=== PATIENT | male | born 1935 | race Asian ===

== ENCOUNTER → 2024-12-05 11:01 | Outpatient (REF) | payer MEDICARE, BC, SELFPAY | LOC: RCS 11:01 | PROVIDERS: ATTENDING PHYSICIAN Internal Medicine Cardiovascular Disease; FAMILY PHYSICIAN Family Medicine | DX: R06.09 Other forms of dyspnea (principal); I34.0 Nonrheumatic mitral (valve) insufficiency | CPT/HCPCS: 93306 ==

== ENCOUNTER → 2024-12-11 06:53 | Outpatient (REF) | payer MEDICARE, BC, SELFPAY | LOC: RCS 06:53 | PROVIDERS: ATTENDING PHYSICIAN Internal Medicine Cardiovascular Disease; FAMILY PHYSICIAN Family Medicine | DX: R94.31 Abnormal electrocardiogram [ECG] [EKG] (principal); R06.09 Other forms of dyspnea | CPT/HCPCS: 78452; 93017; A9500 ==

== ENCOUNTER 2024-12-16 10:01 | Day surgery (SDC) | payer MEDICARE, BC, SELFPAY ==
[2024-12-16] VITALS (18 sets, daily range): BP systolic 131–189; BP diastolic 71–107; BMI 18.4
[2024-12-16 10:40] LABS: Hematocrit 42.6 % (39.0-52.0); Hemoglobin 14.1 g/dL (13.0-18.0); Mean Corp Hgb Conc. 33.1 g/dL (33.0-37.0); Mean Corpuscular Hgb 32.9 pg (27.0-31.0); Mean Corpuscular Volume 99.3 fL (80.0-94.0); Mean Platelet Volume 10.6 fL (7.4-10.4); Platelet Count 187 10^3/uL (130-400); Red Blood Cell Count 4.29 10^6/uL (4.70-6.10); White Blood Cell Count 5.5 10^3/uL (4.8-10.8)
[2024-12-16 10:57] LABS: ALT (SGPT) 21 U/L (0-50); AST (SGOT) 29 U/L (17-59); Albumin 5.1 g/dl (3.5-5.0); Alkaline Phosphatase 66 U/L (38-126); Blood Urea Nitrogen 20 mg/dl (9-20); Calcium 9.5 mg/dl (8.4-10.2); Carbon Dioxide 26 mmol/L (22-30); Chloride 107 mmol/L (98-107); Estimated Creatinine Clearance 33 ml/min; Glucose 101 mg/dl (70-99); Potassium 4.4 mmol/L (3.5-5.1); Sodium 143 mmol/L (135-145); Total Bilirubin 1.8 mg/dl (0.2-1.3); Total Protein 8.3 g/dl (6.3-8.2); eGFR > 60.00
[2024-12-16] MEDS: NSS 151 ML IV (11:00)
[2024-12-16] MEDS: LOW STRENGTH ASPIRIN 324 MG PO (11:41)
[2024-12-16] MEDS: PLAVIX 600 MG PO (17:19)
[2024-12-16] MEDS: TOPROL XL 25 MG PO (17:20)
--- NOTE | 2024-12-16 18:07 | ITS.CL.CATH ---
[facility] Plant Operator - Catheterization
Cardiac Catheterization
Procedure Report:
LEFT HEART CATHETERIZATION
Date of Procedure: December 16, 2024
Referring: Edilma Sanchez MD
PROCEDURES:
1. Left heart catheterization, coronary angiogram.
2. Moderate sedation.
INDICATION: Abnormal ECG and stress test showing transient ischemic dilatation and LAD perfusion defects on 12/11/24. Normal Echocardiogram 12/10/24.
ACCESS: Right radial artery, 6Fr. sheath, under US guidance.
HEMODYNAMICS : (mmHg)
AO (s/d) : 134/87
LVEDP : 13
No significant gradient across the aortic valve to suggest aortic stenosis.
CORONARY FINDINGS
Dominance: Right
Left Main Trunk (LMT): Large caliber vessel that gives rise to the LAD and LCx branches that is free of angiographic disease.
Left Anterior Descending Artery (LAD): Large caliber vessel that gives off two major diagonal branches as it courses along the anterior inter-ventricular groove before reaching but not wrapping the apex. The proximal to mid-LAD has a long area of
80% stenosis. The first diagonal is a small caliber vessel with severe diffuse disease. The second diagonal has ostial 60% stenosis.
Left Circumflex Artery (LCx): Large caliber co-dominant vessel that gives off a large arborizing major obtuse marginal (OM), a small caliber left posterolateral and a small caliber left posterior descending artery . The OM1 has a superior limb with
proximal 70% stenosis, and an inferior limb that bifurcates and has a 90% stenosis at the bifurcation.
Right Coronary Artery (RCA): Large caliber co-dominant vessel that gives rise to large posterior descending artery (RPDA) that reaches the apex and postero-lateral ventricular (RPLV) branches distally. The RCA has a mid-vessel 90% stenosis.
SEDATION: 37 minutes of procedural sedation was utilized. IV Midazolam and IV Fentanyl were administered. An independent director of medical review was present to assist with and help manage the patient's level of consciousness and physiologic status.
RADIATION SUMMARY: Fluoro Time (min): 4.2, Dose (mGy): 151.8, DAP (Gy.cm2) : 9.98
Closure Device: There were no immediate intra-procedural complications. The sheath was pulled in the laborer marine terminal and a vascular-band applied to the right wrist for radial artery hemostasis using the patent hemostasis technique.
CONCLUSIONS
1. Severe multivessel CAD.
2. Normal LVEDP
RECOMMENDATIONS
1. Wean radial band per protocol. Monitor right hand perfusion and for bleeding from the radial site following removal of the vascular-band following trans-radial access.
2. Continue aggressive medical therapy and risk factor modification for secondary CAD prevention.
3. Hydrate with normal saline to mitigate the risk of contrast-induced acute kidney injury.
4. After extensive discussion plan for staged PCI to LAD and RCA. Plavix loaded today with plan for PCI as otupatient on 12/22/24.
5. Follow-up with Dr. Edilma Sanchez
Copy to: Dr. Edilma Sanchez
Sheila Barfield MD
== END 2024-12-16 18:10 | disposition home or self-care (01) ==
LOC: CATH 10:01
PROVIDERS: ATTENDING PHYSICIAN Internal Medicine Interventional Cardiology; FAMILY PHYSICIAN Family Medicine; OTHER PHYSICIAN Internal Medicine Cardiovascular Disease
DX: I25.10 Atherosclerotic heart disease of native coronary artery without angina pectoris (principal); I34.0 Nonrheumatic mitral (valve) insufficiency; I10 Essential (primary) hypertension; E78.1 Pure hyperglyceridemia
CPT/HCPCS: 99152; 99153; 80053; 85027; 93458; C1894; Q9967

== ENCOUNTER 2024-12-22 07:29 | Day surgery (SDC) | payer MEDICARE, BC, SELFPAY ==
[2024-12-22] VITALS (14 sets, daily range): BP systolic 108–159; BP diastolic 49–71; BMI 18.6
[2024-12-22] MEDS: NSS 152 ML IV (08:15)
[2024-12-22] MEDS: LOW STRENGTH ASPIRIN 81 MG PO (08:45)
[2024-12-22] MEDS: PLAVIX 600 MG PO (08:46)
[2024-12-22 09:29] LABS: ACT-LR - POC 339 Seconds (116-155)
[2024-12-22 09:49] LABS: ACT-LR - POC 281 Seconds (116-155)
[2024-12-22 09:59] LABS: ACT-LR - POC 311 Seconds (116-155)
--- NOTE | 2024-12-22 10:41 | PTCARENOTE ---
Addendum entered by Jairon Elizabeth RN 12/22/24 11:02:
Patient received from canvas shop laborer. AO x 3, NSR. Right radial band intact, POX 99%, BP 123/64. Voided in urinal with assistance. Call swartz in reach
Original Note:
Patient reciied from canvas shop laborer. AO x 3, NSR. Right radial band intact, POX 99%, BP 123/64. Voided in urinal with assistance. Call swartz in reach
--- NOTE | 2024-12-22 11:22 | CM ---
Chart reviewed. Patient is independent of ADLS, lives with his in a 2 STH, 1st level set up, 0 DME. Plan is for the patient to return home. CM to follow
--- NOTE | 2024-12-22 14:10 | ITS.CL.CATH ---
Diamond Grader - Catheterization
Cardiac Catheterization
Procedure Report:
CORONARY INTERVENTION
Date of Procedure: December 22, 2024
Referring: Edilma Sanchez MD
PROCEDURES:
1. Left heart catheterization, selective left coronary angiogram.
2. Moderate sedation.
3. Successful percutaneous coronary artery intervention of 2 serial along areas of up to 80% stenosis in the proximal to mid LAD with 2 overlapping 2.5 x 18 and 2.5 x 22 mm Medtronic Morton drug-eluting stent, postdilated with a 2.5 x 15 mm NC
balloon at 18 michelle distally and a 3.0 x 12 mm NC balloon at 18 michelle proximally within excellent angiographic and IVUS based result.
4. Intravascular ultrasound (IVUS)
INDICATION: Recent diagnostic heart catheterization for abnormal ECG and stress test showing transient ischemic dilatation and LAD perfusion defects on 12/11/24. Normal Echocardiogram 12/10/24. He now presents for planned staged PCI of LAD. He was
loaded with Plavix 600 mg last week however he has not been taking Plavix daily until last evening. He has reported taking aspirin daily along with the statin. He has not initiated his beta-karena yet. Extensive discussion was had with patient
and his family especially his daughter who is a professor of voice emphasizing the importance of medication compliance and daily need for dual antiplatelet therapy with aspirin and Plavix post PCI. After extensive discussion of the risk and benefits and
importance of medication compliance, they agreed to move forward. He was reloaded with Plavix 600 mg this morning given he had not been taking it regularly over the last week.
ACCESS: Right radial artery, 6Fr. sheath, under US guidance.
HEMODYNAMICS : (mmHg)
AO (s/d) : 144/67
LVEDP : 26
No significant gradient across the aortic valve to suggest aortic stenosis.
CORONARY FINDINGS
Dominance: Right
Left Main Trunk (LMT): Large caliber vessel that gives rise to the LAD and LCx branches that is free of angiographic disease.
Left Anterior Descending Artery (LAD): Large caliber vessel that gives off two major diagonal branches as it courses along the anterior inter-ventricular groove before reaching but not wrapping the apex. The proximal to mid-LAD has a long area of
80% stenosis. The first diagonal is a small caliber vessel with severe diffuse disease. The second diagonal has ostial 60% stenosis.
Left Circumflex Artery (LCx): Large caliber co-dominant vessel that gives off 2 major obtuse marginal branches, a small caliber left posterolateral and a small caliber left posterior descending artery OM1 is a small to medium caliber vessel with a
OM 2 is a large arborizing major obtuse marginal (OM), which has a superior limb with proximal 70% stenosis, and an inferior limb that bifurcates and has a 90% stenosis at the bifurcation.
Right Coronary Artery (RCA): The RCA was not selectively shot on this study. On recent diagnostic heart catheterization, the RCA is a large caliber co-dominant vessel that gives rise to large posterior descending artery (RPDA) that reaches the
apex and postero-lateral ventricular (RPLV) branches distally. The RCA has a mid-vessel 90% stenosis.
CORONARY INTERVENTION: The left coronary artery was selectively engaged using a 6 Polish EBU 3.5 guide catheter. Additional heparin was given to maintain therapeutic ACT throughout the case. A 190 cm 0.014 run-through wire was successfully
advanced into D2. A second 190 cm 0.014 BMW coronary wire was successfully advanced into the distal LAD after carefully navigating through the proximal and mid LAD stenosis. The lesions in the proximal to mid LAD were predilated using a 2.5 x 20
mm semicompliant balloon with good expansion. The mid LAD lesion was then stented using a 2. 5 x 22 mm Medtronic Morton drug-eluting stent which was overlapped with a 2.5 x 18 mm Medtronic Mark drug-eluting stent in the proximal portion jailing D2.
The jailed run-through wire was retracted from the D2 and redirected back into D2 across the stent struts. At this point we performed intravascular ultrasound with the [employer] eye IVUS catheter and based on IVUS imaging we postdilated the
stents with a 2.5 x 15 mm NC Euphora balloon at 18 michelle distally, 20 michelle in the midportion. Proximal LAD stent was postdilated using a 3.0 x 12 mm NC Euphora balloon at 18 michelle with an excellent angiographic and IVUS based result without evidence of
proximal or distal stent edge dissections. The stent otherwise was well opposed and well-expanded. The patient tolerated the procedure well with no acute complications.
SEDATION: 37 minutes of procedural sedation was utilized. IV Midazolam and IV Fentanyl were administered. An independent medical office coordinator was present to assist with and help manage the patient's level of consciousness and physiologic status.
RADIATION SUMMARY: Fluoro Time (min): 11, Dose (mGy): 206.95, DAP (Gy.cm2) : 10.2
Closure Device: There were no immediate intra-procedural complications. The sheath was pulled in the ballistics laboratory gunsmith and a vascular-band applied to the right wrist for radial artery hemostasis using the patent hemostasis technique.
CONCLUSIONS
1. Successful IVUS guided percutaneous coronary artery intervention of 2 serial along areas of up to 80% stenosis in the proximal to mid LAD with 2 overlapping 2.5 x 18 and 2.5 x 22 mm Medtronic Morton drug-eluting stent, postdilated with a 2.5 x 15
mm NC balloon at 18 michelle distally and a 3.0 x 12 mm NC balloon at 18 michelle proximally within excellent angiographic and IVUS based result.
2. Elevated LVEDP at 26 mmHg.
RECOMMENDATIONS
1. Wean radial band per protocol. Monitor right hand perfusion and for bleeding from the radial site following removal of the vascular-band following trans-radial access.
2. Continue aggressive medical therapy and risk factor modification for secondary CAD prevention.
3. Continue ASA 81 mg daily for life.
4. Continue plavix 75mg daily for at least 12 months of uninterrupted dual anti-platelet therapy given drug-eluting stent (CABRERA) implantation to mitigate the risk of stent thrombosis. This is not to be stopped for any reason without the guidance of
a cook supervisor.
5. Hydrate with normal saline to mitigate the risk of contrast-induced acute kidney injury.
6. Referral for outpatient cardiac rehab.
7. Follow-up with Dr. Edilma Sanchez.
8. Consideration for staged PCI to the mid +/- ostial RCA in the near future depending on how he recovers from this and declares medication compliance.
Copy to: Dr. Edilma Sanchez
Sheila Barfield MD
--- NOTE | 2024-12-22 15:10 | PTCARENOTE ---
TR band removed, dry sterile dressing placed. Assisted to the bathroom to void and assisted to chair, call swartz in reach
[2024-12-22] MEDS: LIPITOR 40 MG PO (17:52)
--- NOTE | 2024-12-22 19:15 | PTCARENOTE ---
Received pt at change of shift OOB in the chair, at bedside. NSR on the monitor, HR in the 60's. Denies any chest pain or SOB. Right radial site C,D,I. No bleeding or hematoma noted at this time. Positive pulses. Pt educated on activity
restrictions. Call swartz within reach.
[2024-12-23 04:03] VITALS: BP 139/73
[2024-12-23 04:37] LABS: Hematocrit 35.9 % (39.0-52.0); Hemoglobin 12.3 g/dL (13.0-18.0); Mean Corp Hgb Conc. 34.3 g/dL (33.0-37.0); Mean Corpuscular Hgb 33.6 pg (27.0-31.0); Mean Corpuscular Volume 98.1 fL (80.0-94.0); Mean Platelet Volume 10.6 fL (7.4-10.4); Platelet Count 168 10^3/uL (130-400); Red Blood Cell Count 3.66 10^6/uL (4.70-6.10); Red Cell Dist. Width 11.6 % (11.5-14.5); White Blood Cell Count 7.1 10^3/uL (4.8-10.8)
--- NOTE | 2024-12-23 04:43 | PTCARENOTE ---
Right radial site C.D.I no bleeding or hematoma noted. AM labs and EKG obtained. Pt voices no complaints at this time.
[2024-12-23 05:10] LABS: Blood Urea Nitrogen 17 mg/dl (9-20); Calcium 8.7 mg/dl (8.4-10.2); Carbon Dioxide 24 mmol/L (22-30); Chloride 111 mmol/L (98-107); Estimated Creatinine Clearance 37 ml/min; Glucose 92 mg/dl (70-99); HDL Cholesterol 47 mg/dl; LDL Cholesterol, Calculated 41 mg/dl; Sodium 141 mmol/L (135-145); Total Cholesterol 106 mg/dl (50-199); Triglyceride 93 mg/dl (10-149); Very Low Density Lipoprotein 18 mg/dl (0-30); eGFR > 60.00
[2024-12-23 07:41] VITALS: BP 146/69
--- NOTE | 2024-12-23 08:14 | W.PN.CARDCBS ---
Addendum entered and electronically signed by Morgan Lazo MD 12/23/24 13:51:
I saw and examined the patient.
The Lacing Cutter's note was reviewed and I agree with the note.
Comment: Briefly, 89-year-old man past medical history of newly identified multivessel CAD following an abnormal stress test who underwent LAD PCI on 12/22/2024
Patient was resting comfortably eating breakfast out of bed to chair in the IVU this morning at the time of my evaluation
Asymptomatic
Maintaining sinus rhythm on telemetry
No evidence of decompensated heart failure based on physical exam
Hematoma of the right forearm however right upper extremity is neurovascularly intact
Plan for discharge on aspirin/Plavix, high intensity statin and beta-karena
Eventual cardiac rehab
Discussed with and daughter at bedside
Original Note:
Today's Communication / Plan
-
cardiac rehab
home today
Impression / Plan
-
PCP: John
CDY: Edilma Sanchez MD
89 y/o, recent diagnostic LHC last week for abnormal ECG and stress test showing transient ischemic dilatation and LAD perfusion defects on 12/11/24. Presented for staged LAD PCI on 12/22, and colón been loaded with plavix last week but was not taking
daily as instructed and was reloaded with 600mg after extensive discussion with patient/family re: medication compliance and need for DAPT post PCI.
LHC- 80% prox/mid LAD- s/p IVUS guided PCI w/2 overlapping CABRERA
IMPRESSION:
CAD
s/p LAD PCI w/2 overlapping CABRERA
Residual 90% ostial RCA, medical management
HTN
Hypertriglyceridemia
ULI
Prior SDH
Lumbar disc disease
Prostate Ca
Medicine non compliance
PLAN:
Tele- NSR, no VT/arrhythmia
Radial cath site stable
Importance of DAPT w/asa, plavix discussed with patient/- they expressed understanding and will be given drug info at discharge
Residual RCA disease- managed medically and consider staged PCI depending on recovery/medicine compliance
Creat stable post dye load
will continue atorvastatin, metoprolol xl
cardiac rehab consult today
followup with Dr. France as scheduled
home today
Progress Note - Public Information Director
Subjective
Date of Service: December 23, 2024
OOB ambulating
denies cp/palps/dyspnea
radial cath site without pain
Objective
Labs:
12/23/24 04:08
12/23/24 04:08
Labs
Hgb 12.3 g/dL (13.0-18.0) L 12/23/24 04:08
Hct 35.9 % (39.0-52.0) L 12/23/24 04:08
Plt Count 168 10^3/uL (130-400) 12/23/24 04:08
Sodium 141 mmol/L (135-145) 12/23/24 04:08
Potassium 4.0 mmol/L (3.5-5.1) 12/23/24 04:08
BUN 17 mg/dl (9-20) 12/23/24 04:08
Creatinine 1.0 mg/dL (0.7-1.3) 12/23/24 04:08
Glucose 92 mg/dl (70-99) 12/23/24 04:08
Vital Signs and I&O:
Vital Signs
Temp Pulse Resp BP Pulse Ox
98.1 F 68 16 139/73 97
12/23/24 04:03 12/23/24 06:00 12/23/24 04:03 12/23/24 04:03 12/23/24 04:03
Vital Signs
Temp Pulse Resp BP Pulse Ox
98.1 F 68 16 139/73 97
12/23/24 04:03 12/23/24 06:00 12/23/24 04:03 12/23/24 04:03 12/23/24 04:03
Intake & Output
12/21/24 12/22/24 12/23/24 12/24/24
06:59 06:59 06:59 06:59
Intake Total 1127 / 1127
Output Total 350 / 350
Balance 777 / 777
Physical Exam
Physical Exam
AAOx3, MAEE 5/5
RRR S1 S2 no murmurs
CTA bilat, non labored
soft abd, + bs
radial site soft, no ht/bleeding, mild ecchymosis noted from prior cath last week
bilat extremities w/palpable distal pulses, no edema
[2024-12-23] MEDS: PLAVIX 75 MG PO (08:16)
[2024-12-23] MEDS: TOPROL XL 25 MG PO (08:16)
[2024-12-23] MEDS: ASPIR LOW (ENTERIC COATED) 81 MG PO (08:16)
--- NOTE | 2024-12-23 10:24 | W.DS.TRANS ---
DC Summary - Warehouse Receiving Clerk
-
Discharge Instructions:
Discharge Diagnosis/Procedures Angioplasty and stent x2 to Left Anterior
Descending artery
Diet Low Cholesterol
Driving Restrictions No driving for 24 hours
Other Services Cardiac Rehab
Instructions:
Stand-Alone Forms: DC Instructions- Cath/EP Lab
Changes to Home Medications: No
Discharge Medications:
DC Medications w/original date entered in [facility]
aspirin 81 mg tablet 81 mg PO DAILY 12/16/24
atorvastatin 40 mg tablet (Lipitor) 40 mg PO QPM 12/16/24
bicalutamide 50 mg tablet 50 mg PO DAILY 12/16/24
calcium 600 mg-D3 800 unit-mag 40 it-cxcl-xqcz-marcia-boron chew tablet (Caltrate 600-D Plus Minerals) 1 tab PO WE 12/16/24
cholecalciferol (vitamin D3) 25 mcg (1,000 unit) capsule 25 mcg PO DAILY 12/16/24
clopidogrel 75 mg tablet 75 mg PO DAILY #90 tabs 12/16/24
vhvoexvswkb-suwuzswvu-H-Mn-boron 750 mg-600 mg-30 mg-1mg-1.5mg tablet 1 tab PO DAILY 12/16/24
metoprolol succinate 25 mg tablet,extended release 24 hr 25 mg PO DAILY #90 tabs 12/16/24
saw palm 160 mg-vit E 100 unit-selen 100 zhs-obst-wzkgjh-pygeum tablet (Prostate Health) 1 tab PO DAILY 12/16/24
turmeric root extract 500 mg tablet 1,000 mg PO DAILY 12/16/24
vitamin B complex 1 tab PO DAILY 12/16/24
Home Medication Changes
Pending Results: No
[2024-12-23 11:22] VITALS: BP 143/63
[2024-12-23 11:24] VITALS: BP 143/63
== END 2024-12-23 11:55 | disposition home or self-care (01) ==
LOC: CATH 07:29
PROVIDERS: Nurse Practitioner; ATTENDING PHYSICIAN Internal Medicine Interventional Cardiology; FAMILY PHYSICIAN Family Medicine; OTHER PHYSICIAN Internal Medicine Cardiovascular Disease
DX: I25.10 Atherosclerotic heart disease of native coronary artery without angina pectoris (principal); Z79.02 Long term (current) use of antithrombotics/antiplatelets; I10 Essential (primary) hypertension; E78.1 Pure hyperglyceridemia; G47.33 Obstructive sleep apnea (adult) (pediatric); M51.9 Unspecified thoracic, thoracolumbar and lumbosacral intervertebral disc disorder; Z91.148 Patient's other noncompliance with medication regimen for other reason; Z79.82 Long term (current) use of aspirin; Z79.899 Other long term (current) drug therapy
CPT/HCPCS: 99152; 99153; 92978; 80048; 80061; 85027; 85347; 93005; 93458; C1725; C1753; C1769; C1874; C1894; C9600; Q9967

== ENCOUNTER 2025-02-11 09:39 | Outpatient (RCR) | payer MEDICARE, BC, SELFPAY | END 2025-02-11 23:59 | disposition home or self-care (01) | LOC: CRHB 09:39 | PROVIDERS: ATTENDING PHYSICIAN Internal Medicine Cardiovascular Disease | DX: I25.10 Atherosclerotic heart disease of native coronary artery without angina pectoris (principal); Z95.5 Presence of coronary angioplasty implant and graft | CPT/HCPCS: G0422; G0423 ==

== ENCOUNTER 2025-03-11 10:25 | Outpatient (RCR) | payer MEDICARE, BC, SELFPAY | END 2025-03-11 23:59 | disposition home or self-care (01) | LOC: CRHB 10:25 | PROVIDERS: ATTENDING PHYSICIAN Internal Medicine Cardiovascular Disease | DX: I25.10 Atherosclerotic heart disease of native coronary artery without angina pectoris (principal); Z95.5 Presence of coronary angioplasty implant and graft | CPT/HCPCS: G0422; G0423 ==

== ENCOUNTER 2025-03-12 09:17 | Day surgery (SDC) | payer MEDICARE, BC, SELFPAY ==
[2025-03-12] VITALS (14 sets, daily range): BP systolic 101–152; BP diastolic 48–79; BMI 18.7; BMI 17.9
--- NOTE | 2025-03-12 10:02 | ITS.CL.CATH ---
[facility] Examiner - Catheterization
Cardiac Catheterization
Procedure Report:
LEFT HEART CATHETERIZATION AND CORONARY INTERVENTION
Date of Procedure: January 10, 2025
Referring: Edilma Sanchez MD
PROCEDURES:
1. Left heart catheterization, coronary angiogram.
2. Moderate sedation.
3. Successful percutaneous coronary artery intervention of a 90% mid RCA stenosis with one 2.5 x 15 mm Medtronic Mark drug-eluting stent, postdilated using a 2.5 x 12 mm NC balloon at 18 michelle with an excellent angiographic result.
4. Functional physiologic testing with IFR of ostial RCA.
INDICATION: Staged PCI to Mid RCA
ACCESS: Left radial artery, 6Fr. sheath, under US guidance.
HEMODYNAMICS : (mmHg)
AO (s/d) : 135/65
LVEDP : 24
No significant gradient across the aortic valve to suggest aortic stenosis.
CORONARY FINDINGS
Dominance: Right
Left Main Trunk (LMT): Large caliber vessel that gives rise to the LAD and LCx branches that is free of angiographic disease.
Left Anterior Descending Artery (LAD): Large caliber vessel that gives off two major diagonal branches as it courses along the anterior inter-ventricular groove before reaching but not wrapping the apex. Recently placed proximal to mid LAD stents
are widely patent. The first diagonal is a small caliber vessel with severe diffuse disease. The second diagonal has ostial 60-70% stenosis.
Left Circumflex Artery (LCx): Large caliber co-dominant vessel that gives off a large arborizing major obtuse marginal (OM), a small caliber left posterolateral and a small caliber left posterior descending artery . The OM1 has a superior limb with
proximal 70% stenosis, and an inferior limb that bifurcates and has a 90% stenosis at the bifurcation.
Right Coronary Artery (RCA): Large caliber co-dominant vessel that gives rise to large posterior descending artery (RPDA) that reaches the apex and postero-lateral ventricular (RPLV) branches distally. The RCA has a mid-vessel 90% stenosis.
Intervention as noted below to mid RCA. Ostial RCA has 50-60% stenosis and was IFR negative at 0.93.
CORONARY INTERVENTION: The RCA was selectively engaged using a 6 [place] JR4 guide catheter. Additional heparin was given to maintain a therapeutic ACT throughout the case. He initially introduced a 190 cm 0.014 run-through wire which kept being
redirected into the RV marginal branch. Leaving this wire in place to help with the guide stabilization a second 190 cm 0.014 power turn flex wire was introduced and carefully navigated across the mid RCA stenosis into the distal RCA. The
run-through was then taken out of the body. The lesion was predilated using a 2.5 x 12 mm semicompliant balloon with full expansion. The lesion was subsequently stented using a 2.5 x 15 mm Medtronic Mark drug-eluting stent and postdilated using a
2.5 x 12 mm NC balloon at high pressures with an excellent intragraft result and FUENTES-3 flow into the distal vessel.
HEMODYNAMIC ASSESSMENT OF THE OSTIAL RCA WITH A [place] OMNI WIRE: Given significant pressure dampening upon engagement with a 6 Swedish JR4 guide without obvious obstructive CAD on angiography decision was made to proceed with IFR of ostial RCA
after mid RCA intervention. Through the same 6 Swedish JR4 guide, two hundred micrograms of intracoronary nitroglycerin was given through the guide catheter. A [place] Omni wire was advanced to the guide catheter tip and normalized in the aorta by
disengaging the guide. The Omni wire was then carefully manipulated across the stenosis in the ostial RCA with the iFR above the ischemic threshold serially measuring 0.94, 0.93. The Omni wire was then pulled back to the guide catheter where the
Pd/Pa measured 1.0 confirming no baseline drift in pressure readings. Decision was made to proceed with medical therapy of this moderate lesion.
The patient tolerated the procedure well with no acute complications. He was to be loaded with 300 mg of Plavix this morning prior to PCI.
SEDATION: 47 minutes of procedural sedation was utilized. IV Midazolam and IV Fentanyl were administered. An independent quality engineer medical device was present to assist with and help manage the patient's level of consciousness and physiologic status.
RADIATION SUMMARY: Fluoro Time (min): 18.7, Dose (mGy): 277.47, DAP (Gy.cm2) : 18.2
Closure Device: There were no immediate intra-procedural complications. The sheath was pulled in the medical laboratory specialist and a vascular-band applied to the left wrist for radial artery hemostasis using the patent hemostasis technique.
CONCLUSIONS
1. Successful percutaneous coronary artery intervention of a 90% mid RCA stenosis with one 2.5 x 15 mm Medtronic [place] drug-eluting stent, postdilated using a 2.5 x 12 mm NC balloon at 18 michelle with an excellent angiographic result.
2. Ostial RCA has 50-60% stenosis and was IFR negative at 0.93.
3. Recently placed proximal to mid LAD stents are widely patent.
4. Elevated LVEDP at 25 mmHg.
RECOMMENDATIONS
1. Wean radial band per protocol. Monitor right hand perfusion and for bleeding from the radial site following removal of the vascular-band following trans-radial access.
2. Continue aggressive medical therapy and risk factor modification for secondary CAD prevention.
3. Continue ASA 81 mg daily for life.
4. Continue plavix 75mg daily for at least 12 months of uninterrupted dual anti-platelet therapy given drug-eluting stent (CABRERA) implantation to mitigate the risk of stent thrombosis. This is not to be stopped for any reason without the guidance of
a cmm operator.
5. Hydrate with normal saline to mitigate the risk of contrast-induced acute kidney injury.
6. Referral for outpatient cardiac rehab.
7. Follow-up with Dr. Edimla Sanchez.
Copy to: Dr. Edilma Sanchez
Sheila Barfield MD
[2025-03-12] MEDS: NSS 150 ML IV (10:09)
[2025-03-12] MEDS: LOW STRENGTH ASPIRIN 81 MG PO (10:09)
[2025-03-12 12:09] LABS: ACT-LR - POC 382 Seconds (116-155)
[2025-03-12 12:38] LABS: ACT-LR - POC 334 Seconds (116-155)
[2025-03-12] MEDS: LIPITOR 40 MG PO (18:01)
[2025-03-12] MEDS: TOPROL XL 25 MG PO (18:01)
--- NOTE | 2025-03-12 19:02 | SUR.OPER ---
~1315: Received report from CCL. Patient brought to room via bed. AOx4, NSR on tele 60s, SBP 100s-110s, RA satting 100%. pt denies pain at this time. pt oriented to room and call swartz system. Admissin questions completed. L TR band in place, site
CDI at this time, patient educated on activity restrictions with L side, patient verbalized understanding. Family at bedside. All needs met at this time, call swartz within reach.
~1400: Air started to be removed from TR band per order.
~1430: Air removed from band per protocol. Site CDI at this time.
~8794-6400: Patient resting. Family at bedside. TR band removed at 1630, site dressed with sterile 2x2 and tegaderm, site CDI.
~[id number]: Patient in bed, family at bedside. VSS at this time. All needs met, call swartz within reach. Handoff report given to nightshift RN.
--- NOTE | 2025-03-12 20:36 | PTCARENOTE ---
Assumed care at 1900. Left radial site dressing clean, dry, and intact. Mild swelling noted to patient's left forearm. Tender to touch. Left forearm soft to touch. No bruising noted. Ice pack applied to area. Patient tolerated ambulating to bathroom
with standby assist. Patient denies any chest pain or shortness of breath. Sinus ray with heart rates in the 50s and 60s. Patient aware of plan of care. Call swartz within reach.
[2025-03-12] MEDS: TYLENOL 650 MG PO (21:04)
[2025-03-13 04:25] VITALS: BP 104/53
[2025-03-13 05:06] LABS: Hematocrit 36.6 % (39.0-52.0); Hemoglobin 11.9 g/dL (13.0-18.0); Mean Corp Hgb Conc. 32.5 g/dL (33.0-37.0); Mean Corpuscular Volume 98.1 fL (80.0-94.0); Platelet Count 140 10^3/uL (130-400); Red Cell Dist. Width 12.7 % (11.5-14.5)
[2025-03-13 05:30] LABS: Blood Urea Nitrogen 19 mg/dl (9-20); Calcium 8.4 mg/dl (8.4-10.2); Carbon Dioxide 23 mmol/L (22-30); Chloride 112 mmol/L (98-107); Estimated Creatinine Clearance 36 ml/min; Glucose 85 mg/dl (70-99); HDL Cholesterol 48 mg/dl; LDL Cholesterol, Calculated 27 mg/dl; Potassium 4.1 mmol/L (3.5-5.1); Sodium 139 mmol/L (135-145); Very Low Density Lipoprotein 17 mg/dl (0-30); eGFR > 60.00
--- NOTE | 2025-03-13 05:35 | PTCARENOTE ---
Left radial site dressing clean, dry, and intact. Slight improvement in swelling to left forearm noted. Patient reports improvement of soreness to the area. Patient sleeping between care overnight. Remains in sinus ray on tele. Call swartz within
reach.
[2025-03-13 06:00] VITALS: BMI 17.5
[2025-03-13 07:04] VITALS: BP 122/73
--- NOTE | 2025-03-13 07:40 | W.PN.CARDCBS ---
Addendum entered and electronically signed by Jamar Hallman MD 03/13/25 08:44:
I saw and examined the patient.
The Client Executive's note was reviewed and I agree with the note.
Comment:
GEN: No distress, awake, Ox3
HEENT: supple, anicteric, mmm
LUNGS: CTA, no wheezes/rales
CV: Reg, S1/S2, 1/6 syst LSB, no gallop
ABD: soft, BS+, NT/ND
EXT: mild L Radial ecchymosis
NEURO: Gross non-focal
SKIN: No rash
PLan:
Overall doing well status post right coronary artery PCI.
Continue medical therapy for three-vessel coronary artery disease.
Continue aspirin, Plavix, Toprol, lisinopril.
Hemoglobin 11.9, creatinine 1.0
Original Note:
Today's Communication / Plan
-
cardiac rehab
continue DAPT
med compliance reinforced
home today
Impression / Plan
-
PCP: Chriss Lopez,
CDY: Edilma Sanchez MD
89 y/o, with recent abnormal NST and subsequent LAD PCI 12/22/2024. Residual 50-60% ostial, 90% mid RCA at the time, and returns for staged RCA intervention. He has been taking aspirin/plavix without interruption.
LHC 03/12- s/p 90% mid RCA PCI w/CABRERA x1
50-60% ostial RCA, non flow limiting with iFR negative
proximal-mid LAD overlapping stents widely patent
elevated LVEDP 25mmHg
IMPRESSION:
CAD
s/p mid RCA PCI w/CABRERA x1, ostial RCA iFR negative
prior LAD PCI w/2 overlapping CABRERA- widely patent
HTN
Hypertriglyceridemia
ULI
Prior SDH
Lumbar disc disease
Prostate Ca
Medicine non compliance
PLAN:
Tele- NSR, no VT/arrhythmia
Radial cath site stable
Good compliance with DAPT, reinforced importance of uninterrupted DAPT for at least 12 months post CABRERA
Creat stable post dye load
continue metoprolol xl
excellent lipid profile- continue atorvastatin
cardiac rehab
followup at [facility] as scheduled
home today
Progress Note - Skiver Counter
Subjective
Date of Service: March 13, 2025
Denies cp/palps/dyspnea
oob ambulating
left radial cath site tender with good relief from tylenol
Objective
Labs:
03/13/25 04:26
03/13/25 04:26
Labs
Hgb 11.9 g/dL (13.0-18.0) L 03/13/25 04:26
Hct 36.6 % (39.0-52.0) L 03/13/25 04:26
Plt Count 140 10^3/uL (130-400) 03/13/25 04:26
Sodium 139 mmol/L (135-145) 03/13/25 04:26
Potassium 4.1 mmol/L (3.5-5.1) 03/13/25 04:26
BUN 19 mg/dl (9-20) 03/13/25 04:26
Creatinine 1.0 mg/dL (0.7-1.3) 03/13/25 04:26
Glucose 85 mg/dl (70-99) 03/13/25 04:26
Vital Signs and I&O:
Vital Signs
Temp Pulse Resp BP Pulse Ox
98.1 F 56 20 104/53 98
03/13/25 07:04 03/13/25 05:45 03/13/25 07:04 03/13/25 04:25 03/13/25 07:04
Vital Signs
Temp Pulse Resp BP Pulse Ox
98.1 F 56 20 104/53 98
03/13/25 07:04 03/13/25 05:45 03/13/25 07:04 03/13/25 04:25 03/13/25 07:04
Intake & Output
03/11/25 03/12/25 03/13/25 03/14/25
06:59 06:59 06:59 06:59
Intake Total 250 / 250
Output Total 225 / 225
Balance
Physical Exam
Physical Exam
AAOx3, MAEE 5
RRR S1 S2 no murmurs
CTA bilat, non labored
soft abd, + bs
left radial cath site without ht/bleeding/swelling, mild ecchymosis noted, mildly tender, good pulse
bilat extremities w/palpable distal pulses, no edema
--- NOTE | 2025-03-13 08:14 | W.DS.TRANS ---
DC Summary - [employer]
-
Discharge Instructions:
Discharge Diagnosis/Procedures Angioplasty with stent to Right Coronary artery
Diet Low Cholesterol
Driving Restrictions No driving for 24 hours
Other Services Cardiac Rehab
Instructions:
Stand-Alone Forms: DC Instructions- Cath/EP Lab
Changes to Home Medications: No
Discharge Medications:
DC Medications w/original date entered in [employer]
aspirin 81 mg tablet 81 mg PO HS 12/16/24
atorvastatin 40 mg tablet (Lipitor) 40 mg PO HS 12/16/24
bicalutamide 50 mg tablet 50 mg PO HS 12/16/24
calcium 600 mg-D3 800 unit-mag 40 ta-baud-vfsc-marcia-boron chew tablet (Caltrate 600-D Plus Minerals) 1 tab PO WE 12/16/24
cholecalciferol (vitamin D3) 25 mcg (1,000 unit) capsule 25 mcg PO HS 12/16/24
clopidogrel 75 mg tablet 75 mg PO DAILY #90 tabs 12/16/24
tkfmkvvtiyp-vhvnmhacm-R-Mn-boron 750 mg-600 mg-30 mg-1mg-1.5mg tablet 1 tab PO HS 12/16/24
metoprolol succinate 25 mg tablet,extended release 24 hr 25 mg PO DAILY #90 tabs 12/16/24
saw palm 160 mg-vit E 100 unit-selen 100 bxm-vyop-sxkijm-pygeum tablet (Prostate Health) 1 tab PO HS 12/16/24
turmeric root extract 500 mg tablet 1,000 mg PO HS 12/16/24
vitamin B complex 1 tab PO HS 12/16/24
Home Medication Changes
Pending Results: No
--- NOTE | 2025-03-13 08:42 | CM ---
Reviewed chart. Met with Mr Bishop and his daughter to review discharge plans. He states prior to admission he resides with his spouse in a condo with five steps to enter. He states prior to admission he was independent with ambulation and adls. He
states he ramos not have any DME in the home. He states he has a prescription plan and uses [facility]. The discharge plan is to return home with his spouse when medically stable.
[2025-03-13] MEDS: LOW STRENGTH ASPIRIN 81 MG PO (08:47)
[2025-03-13] MEDS: CASODEX 50 MG PO (08:47)
[2025-03-13] MEDS: PLAVIX 75 MG PO (08:47)
--- NOTE | 2025-03-13 10:24 | PTCARENOTE ---
pt sb on the monitor, hr in the 50s, vss. pt offers no complaints at this time. iv and tele removed. d/c instructions read to pt and pt verbalized understanding. pt left via wheelchair w/ staff member.
== END 2025-03-13 10:27 | disposition home or self-care (01) ==
LOC: CATH 09:17
PROVIDERS: Nurse Practitioner Adult Health; ATTENDING PHYSICIAN Internal Medicine Interventional Cardiology; FAMILY PHYSICIAN Family Medicine; OTHER PHYSICIAN Internal Medicine Cardiovascular Disease
DX: I25.10 Atherosclerotic heart disease of native coronary artery without angina pectoris (principal); Z95.5 Presence of coronary angioplasty implant and graft; I10 Essential (primary) hypertension; E78.1 Pure hyperglyceridemia; M51.9 Unspecified thoracic, thoracolumbar and lumbosacral intervertebral disc disorder; Z79.82 Long term (current) use of aspirin; Z79.02 Long term (current) use of antithrombotics/antiplatelets; G47.33 Obstructive sleep apnea (adult) (pediatric); Z85.46 Personal history of malignant neoplasm of prostate; Z91.148 Patient's other noncompliance with medication regimen for other reason; I45.4 Nonspecific intraventricular block; Z79.899 Other long term (current) drug therapy
CPT/HCPCS: 93799; 99152; 99153; 80048; 80061; 85027; 85347; 93005; C1725; C1769; C1874; C1894; C9600; Q9967

== ENCOUNTER 2025-04-13 10:11 | Outpatient (RCR) | payer MEDICARE, BC, SELFPAY | END 2025-04-13 23:59 | disposition home or self-care (01) | LOC: CRHB 10:11 | PROVIDERS: ATTENDING PHYSICIAN Internal Medicine Cardiovascular Disease | DX: I25.10 Atherosclerotic heart disease of native coronary artery without angina pectoris (principal); Z95.5 Presence of coronary angioplasty implant and graft | CPT/HCPCS: G0422; G0423 ==

== ENCOUNTER 2025-04-27 11:25 | Outpatient (RCR) | payer MEDICARE, BC, SELFPAY | END 2025-04-27 13:00 | disposition home or self-care (01) | LOC: CRHB 11:25 | PROVIDERS: ATTENDING PHYSICIAN Internal Medicine Cardiovascular Disease | DX: I25.10 Atherosclerotic heart disease of native coronary artery without angina pectoris (principal); Z95.5 Presence of coronary angioplasty implant and graft | CPT/HCPCS: G0422; G0423 ==

== ENCOUNTER 2025-05-15 16:47 | Outpatient (RCR) | payer MEDICARE, BC, SELFPAY | END 2025-05-15 23:59 | disposition home or self-care (01) | LOC: CRHB 16:47 | PROVIDERS: ATTENDING PHYSICIAN Internal Medicine Cardiovascular Disease; FAMILY PHYSICIAN Family Medicine | DX: I25.10 Atherosclerotic heart disease of native coronary artery without angina pectoris (principal); Z95.5 Presence of coronary angioplasty implant and graft | CPT/HCPCS: G0422; G0423 ==

== ENCOUNTER 2025-06-10 16:47 | Outpatient (RCR) | payer MEDICARE, BC, SELFPAY | END 2025-06-10 23:59 | disposition home or self-care (01) | LOC: CRHB 16:47 | PROVIDERS: ATTENDING PHYSICIAN Internal Medicine Cardiovascular Disease; FAMILY PHYSICIAN Family Medicine | DX: I25.10 Atherosclerotic heart disease of native coronary artery without angina pectoris (principal); Z95.5 Presence of coronary angioplasty implant and graft | CPT/HCPCS: G0422; G0423 ==

== ENCOUNTER 2025-07-13 16:32 | Outpatient (RCR) | payer MEDICARE, BC, SELFPAY | END 2025-07-13 23:59 | disposition home or self-care (01) | LOC: CRHB 16:32 | PROVIDERS: ATTENDING PHYSICIAN Internal Medicine Cardiovascular Disease; FAMILY PHYSICIAN Family Medicine | DX: I25.10 Atherosclerotic heart disease of native coronary artery without angina pectoris (principal); Z95.5 Presence of coronary angioplasty implant and graft | CPT/HCPCS: G0422; G0423 ==